=== PATIENT | male | born 1985 | race Caucasian/White ===

== ENCOUNTER 2016-11-15 18:39 | Emergency (ER) | payer MEDICAID ==
[~2016-11-15] VITALS: Ht 180.3 cm; Wt 129.6 kg
[~2016-11-15 18:39] MED LIST: FAMO10TA99 PO; GLIM2 PO; IBUP-2070 PO; LISI-661 PO; METF500T7 PO; NAPR250T2 PO; TRAM50TA4 PO
[2016-11-15 19:16] LABS: GLUCOSE,POINT OF CARE 355 MG/DL (70-110)
[2016-11-15 19:27] LABS: BASOPHILS % (AUTO) 0.4 % (0.0-2.0); EOSINOPHILS % (AUTO) 0.7 % (1.0-6.0); HEMATOCRIT 42.4 % (41-53); LYMPHOCYTES # (AUTO) 3.6 K/uL (1.0-4.8); LYMPHOCYTES % (AUTO) 25.4 % (22.0-44.0); MEAN CORPUSCULAR HEMOGLOBIN 25.7 pg (26.0-34.0); MEAN CORPUSCULAR VOLUME 78 fL (80-100); MONOCYTES % (AUTO) 6.9 % (2.0-9.0); NEUTROPHILS # (AUTO) 9.4 K/uL (1.8-7.7); NEUTROPHILS % (AUTO) 66.6 % (40.0-70.0); PLATELET COUNT (AUTO) 324 K/uL (150-450); RED BLOOD CELL COUNT(AUTO) 5.45 MIL/uL (4.50-5.90); RED CELL DISTRIBUTION WIDTH 13.4 % (11.5-14.5); WHITE BLOOD COUNT (AUTO) 14.1 K/uL (4.5-11.0)
[2016-11-15 19:35] LABS: ANION GAP 10 mmol/L (8-16); CALCIUM, TOTAL 9.4 mg/dL (8.8-10.5); CARBON DIOXIDE 29 mmol/L (22-29); CHLORIDE 98 mmol/L (98-107); CREATININE 0.95 mg/dL (0.60-1.30); GLOMERULAR FILTR. RATE CALC > 60 mL/min (>60); POTASSIUM 3.1 mmol/L (3.5-5.1); SODIUM SERUM 137 mmol/L (136-145); UREA NITROGEN, BLOOD 15 mg/dL (7-18)
[2016-11-15 19:41] LABS: ALANINE AMINOTRANSFERASE 71 U/L (12-78); ALBUMIN 3.6 g/dL (3.4-5.0); ASPARTATE AMINOTRANSFERASE 34 U/L (15-37); BILIRUBIN,TOTAL 0.4 mg/dL (0.1-1.0); TOTAL PROTEIN, SERUM 8.2 g/dL (6.4-8.2)
[2016-11-15 19:52] LABS: B-TYPE NATRIURETIC PEPTIDE 9 pg/mL (0-100)
[2016-11-15 19:55] LABS: RBC MORPHOLOGY COMMENT ABNORMAL RBC MORPH
[2016-11-15] MEDS ORDERED: IOVERSOL 350 MG/ML 100 ML VIAL ONE (20:24)
[2016-11-15] MEDS ORDERED: NITROGLYCERIN 0.4 MG SUBLINGUAL TABLET #25 SL ONE (20:30)
[2016-11-15] MEDS ORDERED: MethylPREDNISolone SOD SUCC 125 MG/2 ML VIAL IVP ONE (20:45)
[2016-11-15] MEDS ORDERED: DiphenhydrAMINE HCL 50 MG/ML VIAL IVP ONE (20:45)
[2016-11-16 01:13] VITALS: BP 161/101
== END 2016-11-16 01:21 | disposition home or self-care (01) ==
LOC: EMS 18:41
DX: R07.9 Chest pain, unspecified (principal); J45.909 Unspecified asthma, uncomplicated; E11.9 Type 2 diabetes mellitus without complications; I10 Essential (primary) hypertension; Z91.013 Allergy to seafood
CPT/HCPCS: 36415; 71260; 72193; 74160; 80053; 82962; 83880; 84484; 85025; 93005; 96374; 99285; J1200; J2930; Q9967

== ENCOUNTER 2021-05-18 02:12 | Emergency (ER) | payer SELFPAY ==
[~2021-05-18] VITALS: Ht 180.3 cm; Wt 273.0 kg
[2021-05-18] MEDS ORDERED: CLINDAMYCIN HCL 150 MG CAPSULE PO ONE (04:30)
[2021-05-18] MEDS ORDERED: CIPROFLOXACIN HCL 250 MG TABLET PO ONE (04:30)
[2021-05-18 05:02] VITALS: BP 135/88
== END 2021-05-18 07:57 | disposition home or self-care (01) ==
LOC: EMS 02:14
DX: E11.621 Type 2 diabetes mellitus with foot ulcer (principal); I10 Essential (primary) hypertension; J45.909 Unspecified asthma, uncomplicated; Z91.018 Allergy to other foods
CPT/HCPCS: 82962; 99283